=== PATIENT | female | born 1955 | race Caucasian/White ===

== ENCOUNTER 2018-03-17 11:30 | Outpatient (CLI) | payer OTHER ==
[~2018-03-17 11:30] MED LIST: HYZAAR 100/25 T1 TAB; OSEL75CA PO; TUSSI PRES-B L120 M1 PO
== END 2018-03-17 11:34 | disposition home or self-care (01) ==
LOC: MAMO-SONO 11:30
DX: Z85.3 Personal history of malignant neoplasm of breast (principal)

== ENCOUNTER 2020-12-05 05:42 | Emergency (ER) | payer OTHER ==
[~2020-12-05] VITALS: Ht 157.5 cm; Wt 97.5 kg
[2020-12-05] MEDS ORDERED: ACETAMINOPHEN-1 EAC2 PO (07:52)
[2020-12-05] MEDS ORDERED: ZOVIRAX30 GM TOP (07:52)
[2020-12-05] MEDS ORDERED: ZOVIRAX800 MG PO (07:52)
== END 2020-12-05 08:35 | disposition home or self-care (01) ==
LOC: ER 05:42
DX: B02.9 Zoster without complications (principal)

== ENCOUNTER 2021-01-10 08:23 | Outpatient (CLI) | payer OTHER ==
[~2021-01-10 08:23] MED LIST changes: +ACETAMINOPHEN-1 EAC2 PO; +ZOVIRAX30 GM TOP; +ZOVIRAX800 MG PO
== END 2021-01-10 08:27 | disposition home or self-care (01) ==
LOC: MAMO-SONO 08:23
PROVIDERS: ATTEND Internal Medicine Hematology & Oncology
DX: R92.1 Mammographic calcification found on diagnostic imaging of breast (principal)

== ENCOUNTER → 2022-03-26 | Outpatient (CLI) | payer OTHER | END | disposition home or self-care (01) | LOC: MAMO-SONO 07:26 | PROVIDERS: ATTEND Internal Medicine Hematology & Oncology | DX: Z12.31 Encounter for screening mammogram for malignant neoplasm of breast (principal); C50.411 Malignant neoplasm of upper-outer quadrant of right female breast; Z85.3 Personal history of malignant neoplasm of breast ==

== ENCOUNTER 2022-05-01 08:33 | Outpatient (CLI) | payer OTHER | END 2022-05-01 08:48 | disposition home or self-care (01) | LOC: PPH VACUNA 08:33 | PROVIDERS: ATTEND Emergency Medicine Pediatric Emergency Medicine | DX: Z23 Encounter for immunization (principal) ==

== ENCOUNTER 2022-07-05 01:30 | Emergency (ER) | payer OTHER ==
[~2022-07-05] VITALS: Ht 167.6 cm; Wt 103.4 kg
== END 2022-07-05 03:16 | disposition home or self-care (01) ==
LOC: ER 01:30
DX: S93.492A Sprain of other ligament of left ankle, initial encounter (principal); W01.0XXA Fall on same level from slipping, tripping and stumbling without subsequent striking against object, initial encounter; Y93.89 Activity, other specified; Y92.018 Other place in single-family (private) house as the place of occurrence of the external cause; S70.02XA Contusion of left hip, initial encounter; Z88.2 Allergy status to sulfonamides; Z88.8 Allergy status to other drugs, medicaments and biological substances; I10 Essential (primary) hypertension; M19.90 Unspecified osteoarthritis, unspecified site

== ENCOUNTER 2023-06-02 09:16 | Outpatient (CLI) | payer OTHER | END 2023-06-02 09:20 | disposition home or self-care (01) | LOC: MAMO-SONO 09:16 | PROVIDERS: ATTEND Internal Medicine | DX: Z12.31 Encounter for screening mammogram for malignant neoplasm of breast (principal) ==

== ENCOUNTER 2024-06-28 07:06 | Outpatient (CLI) | payer OTHER | END 2024-06-28 07:13 | disposition home or self-care (01) | LOC: MAMO-SONO 07:06 | PROVIDERS: ATTEND Internal Medicine | DX: C50.411 Malignant neoplasm of upper-outer quadrant of right female breast (principal); Z85.3 Personal history of malignant neoplasm of breast; Z12.31 Encounter for screening mammogram for malignant neoplasm of breast ==